=== PATIENT | male | born 1995 | race Caucasian/White ===

== ENCOUNTER 2017-06-21 21:18 | Emergency (ER) | payer BC ==
[~2017-06-21] VITALS: Ht 182.9 cm; Wt 115.4 kg
[2017-06-21 21:21] VITALS: BP 181/99; PULSE 118; TEMP 37; O2SAT 98; Ht 182.9 cm; Wt 115.4 kg
[2017-06-21] MEDS ORDERED: XYLOCAINE 1%/SOD BICARB 20 ML VIAL INFIL STA (21:30)
--- NOTE | 2017-06-21 21:58 | EMERGENCY ROOM VISIT NOTE ---
ED Visit Note First contact with patient: 21:25 CHIEF COMPLAINT: Left middle Finger laceration HISTORY OF PRESENT ILLNESS: This 22-year-old male patient presents to the emergency department approximately 30 minutes after cutting the left middle finger with a knife. The patient states he was trying to cut a hole in a plastic shoebox using a K-bar knife, when the knife slipped, cutting his left middle finger, next to the nail. The laceration is on the lateral aspect of the distal left middle finger, and does not extend into the nailbed. The bleeding has stopped. Denies weakness or numbness of the finger. The patient has full range of motion of the fingers. The patient rates the pain as throbbing and 5/10. The patient denies any other injuries. The patient's tetanus shot is up to date. REVIEW OF SYSTEMS: A 6 system review of systems was completed with positives and pertinent negatives listed in the HPI. ALLERGIES: None MEDICATIONS: None PMH: None SOCIAL HISTORY: Patient is a [place] [employer] student. He lives locally with his roommate. The patient states he does occasionally drink alcohol, but denies any drug or tobacco use. PHYSICAL EXAM: Vital Signs: Reviewed Nurse's notes, vital signs stable. GENERAL : This is a 22-year-old male, in no acute distress, well developed, well nourished. SKIN: There is a 0.5 cm long laceration on the distal, lateral aspect of the left third finger which does not extend into the nail bed or fingernail. The edges gape apart with traction. There is no foreign material in the wound and it looks clean. There is minimal bleeding. No deep structures such as tendons, bones, or significant blood vessels are seen in the base of the wound. Extension and flexion of the finger is full and strong. Full range of motion of the wrist and other fingers. Capillary refill less than 2 seconds. Normal sensation to light and sharp touch. EMERGENCY DEPARTMENT COURSE: I examined the patient. Verbal consent was obtained to perform the procedure. Using sterile technique the wound was cleansed with Betadine. 3 ml of 1% buffered lidocaine was used to perform a digital block to anesthetize the patient. The area was sterilely draped. Once the patient was anesthetized, the wound was copiously irrigated under pressure with sterile saline. The wound was explored and there were no deep structures injured. The laceration was repaired using 4 simple interrupted 5-0 nylon sutures. The patient tolerated the procedure well. Hemostasis was achieved. The area was cleaned with sterile saline and dressed with bacitracin ointment and bandage. The patient was discharged home in good condition. DIFFERENTIAL DIAGNOSIS: Laceration, avulsion, puncture, contusion, and others DIAGNOSIS: Finger laceration DISCHARGE INSTRUCTIONS & TREATMENT: You have received 4 sutures on your left middle finger. These sutures are NOT dissolvable and WILL need to be removed by a health care provider in 10-12 days. You can return to the Emergency Department or contact your Primary Care Provider to have the sutures removed. Proper wound care is essential for adequate wound healing and infection prevention. You can shower and clean the wound with soap and water. Do not scour over the wound, pat dry with a towel. Do not submerse the wound (i.e. bathe or dish wash) until the sutures have been removed. You can use an antibiotic ointment with a dressing over the wound for the next 3-4 days. After this time you may leave the wound dry and open to the air. If crust develops over the wound you can use a Q-tip to apply a 1:1 peroxide:water solution to clean the wound. Look for signs of infection of the wound including: increased pain, swelling, foul discharge, streaking, or increased temperature. If any of these are noticed you should return to the Emergency Department for further assessment and treatment. As with any laceration you may have received nerve damage to the surrounding tissues. This damage may or may not be permanent. You should keep the area covered with sunscreen for the first 6 months to 1 year when at risk for exposure to help minimize scarring. You can also use scar reducing creams or Vitamin E oil to help minimize scarring. For pain control, you can use the following [id number] medicines (if >12 yo): - Regular strength (325mg/tab) Tylenol (acetaminophen) 2 tabs every 4-6 hours as needed. Do not exceed 9 tablets in a 24 hour period. Avoid taking more than 3 grams (3000 mg) of Tylenol per day. This includes any other sources of acetaminophen you may take on a regular basis. - Regular strength (200 mg/tab) Advil (ibuprofen) 1-2 tabs every 4-6 hours as needed. Do not exceed a dose of 2400 mg per day. Return to the emergency department if your symptoms worsen despite treatment course outlined above. Current/Historical Medications No Active Prescriptions or Reported Meds Allergies Coded Allergies: No Known Allergies (Unverified , 06/21/17) Vital Signs Date Time Temp Pulse Resp B/P (MAP) Pulse Ox O2 Delivery O2 Flow Rate FiO2 06/21/17 21:21 37.0 118 20 181/99 98 Room Air Departure Information Impression Primary Impression: Finger laceration Dispostion Home / Self-Care Condition GOOD Prescriptions No Active Prescriptions or Reported Meds Referrals No Doctor, Assigned (PCP) [facility] Patient Instructions ED Laceration Ext Sutr Stap Tape, Massive Additional Instructions You have received 4 sutures on your left middle finger. These sutures are NOT dissolvable and WILL need to be removed by a health care provider in 10-12 days. You can return to the Emergency Department or contact your Primary Care Provider to have the sutures removed. Proper wound care is essential for adequate wound healing and infection prevention. You can shower and clean the wound with soap and water. Do not scour over the wound, pat dry with a towel. Do not submerse the wound (i.e. bathe or dish wash) until the sutures have been removed. You can use an antibiotic ointment with a dressing over the wound for the next 3-4 days. After this time you may leave the wound dry and open to the air. If crust develops over the wound you can use a Q-tip to apply a 1:1 peroxide:water solution to clean the wound. Look for signs of infection of the wound including: increased pain, swelling, foul discharge, streaking, or increased temperature. If any of these are noticed you should return to the Emergency Department for further assessment and treatment. As with any laceration you may have received nerve damage to the surrounding tissues. This damage may or may not be permanent. You should keep the area covered with sunscreen for the first 6 months to 1 year when at risk for exposure to help minimize scarring. You can also use scar reducing creams or Vitamin E oil to help minimize scarring. For pain control, you can use the following dvxg-krx-whwrsaj medicines (if >12 yo): - Regular strength (325mg/tab) Tylenol (acetaminophen) 2 tabs every 4-6 hours as needed. Do not exceed 9 tablets in a 24 hour period. Avoid taking more than 3 grams (3000 mg) of Tylenol per day. This includes any other sources of acetaminophen you may take on a regular basis. - Regular strength (200 mg/tab) Advil (ibuprofen) 1-2 tabs every 4-6 hours as needed. Do not exceed a dose of 2400 mg per day. Return to the emergency department if your symptoms worsen despite treatment course outlined above. Problem Qualifiers Primary Impression: Finger laceration Encounter type: initial encounter Finger: middle finger Damage to nail status: without damage Foreign body presence: without foreign body Laterality: left Qualified Codes: S61.213A - Laceration without foreign body of left middle finger without damage to nail, initial encounter
== END 2017-06-21 22:20 | disposition home or self-care (01) ==
LOC: C.EDB 21:20 → C.EDD 22:20
DX: S61.231A Puncture wound without foreign body of left index finger without damage to nail, initial encounter (principal); W26.0XXA Contact with knife, initial encounter

== ENCOUNTER 2017-10-15 14:05 | Emergency (ER) | payer BC ==
[~2017-10-15] VITALS: Ht 182.9 cm; Wt 115.3 kg
[2017-10-15 14:07] VITALS: TEMP 36.9; Ht 182.9 cm; Wt 115.3 kg
--- NOTE | 2017-10-15 15:09 | DIAGNOSTIC IMAGING REPORT ---
HEAD WITHOUT CONTRAST (CT) CLINICAL HISTORY: 22 years-old Male with fall, head strike, retrograde amnesia, N/V. Acute head injury status post fall TECHNIQUE: Multiple axial CT images of the head were obtained without contrast. A dose lowering technique was utilized adhering to the principles of ALARA. CT DOSE: 679.75 mGycm COMPARISON: None. FINDINGS: No acute intracranial hemorrhage, midline shift, intracranial mass, hydrocephalus, territorial ischemia or abnormal extra-axial collection. Focal 7 mm area of low-attenuation within the region of the right inferior lentiform nucleus suggests prominent perivascular space. Less discrete area is also seen on the left. The calvarium is intact. The paranasal sinuses, mastoid air cells, and middle ear cavities are clear. IMPRESSION: No acute intracranial abnormality. The above report was generated using voice recognition software. It may contain grammatical, syntax or spelling errors. Electronically signed by: Randolph Connors M.D. 10/15/2017 3:07 PM Dictated Date/Time: 10/15/2017 3:05 PM
[2017-10-15 15:34] VITALS: BP 121/60; PULSE 68; O2SAT 98
--- NOTE | 2017-10-16 15:54 | EMERGENCY ROOM VISIT NOTE ---
ED Visit Note First contact with patient: 14:11 Chief Complaint: Head injury. History of Present Illness: Mr. Krishnamurthy is a 22-year-old white male who ambulates into the ED complaining of a possible head injury. Patient was seen at local urgent care center prior to arrival at the hospital and was evaluated and referred to the ED for possible CT scan. Patient reports on Saturday night, 3 days ago, he was drinking alcohol with friends. He reports he went outside to throw something in a garbage container, slipped on the ice and struck his head. He reports he is amnestic to everything after the fall until Saturday afternoon. Currently he is complaining of an occipital/left parietal headache. He describes this as a throbbing discomfort. He rates his discomfort 7/10. His pain is nonradiating. He has not identified any aggravating or alleviating factors related to the pain. He reports he has used Tylenol without relief of his discomfort. Associated with his symptoms he reports he is having dizziness specifically with head movement, mild blurry vision, light sensitivity, sensations of feeling fatigued. Additionally he reports intermittently has been nauseated but has not vomited. He denies hearing changes, difficulty speaking, difficulty swallowing, neck pain , back pain, chest pain, shortness of breath, abdominal pain, extremity weakness /numbness/tingling. Review of Systems: As noted above in history of present illness. All body systems were reviewed and found to be negative as noted above. Past Medical History: Asthma, bronchitis, pneumonia, status post tonsillectomy and adenoidectomy. Current Medications: Patient denies. Allergies to Medications: Patient denies. Social History: Patient is currently University student; he feels safe in his home environment; he denies tobacco use. Physical Examination: Vital Signs: Date Time Temp Pulse Resp B/P (MAP) Pulse Ox O2 Delivery O2 Flow Rate FiO2 10/15/17 15:34 68 18 121/60 98 10/15/17 14:10 17 10/15/17 14:07 36.9 77 17 141/82 98 Room Air GENERAL: 22-year-old male in mild distress due to symptoms, nontoxic-appearing, afebrile and hemodynamically stable. NEUROLOGICAL: Awake, alert and oriented to person, place and time. Answering questions appropriately and following commands. Normal gait. Good hand eye coordination. Romberg test negative. Pronator drift test negative. Cranial nerves II through XII grossly intact. Good short-term but poor long-term recall. Able to spell and count backwards. SKIN: Warm, dry and pink. No soft tissue eruptions or trauma noted. HEENT: Atraumatic and normocephalic. Skull: No bony deformity, bony tenderness , swelling or ecchymosis. No raccoon's eyes or conn signs. No drainage in the ears of the nostril; no hemotympanum. Face: No bony tenderness, swelling or ecchymosis. PERRLA. EOMI without nystagmus. Visual acuity: 20/30 bilaterally without correction. No malocclusion. No intraoral trauma. Airway is patent. Speech is normal and clear. No lymphadenopathy. Trachea midline. No jugular venous distention. BACK: No tenderness over the bony cervical, thoracic and lumbar spine. No tenderness throughout the paraspinous muscles or spasm. Full range of motion of the cervical spine. No CVA tenderness. THORAX: Lungs sounds are clear to auscultation and equal bilaterally with symmetrical chest wall. No wheezing, rales or rhonchi. No crepitus, tenderness , subcutaneous air or deformities noted. ABDOMEN: Flat, soft and nontender. Positive bowel sounds in all quadrants. No guarding, rigidity or organomegaly. EXTREMITIES: Moves all extremities well on command and with purpose. All distal neurovascular statuses are intact and equal bilaterally. 4/5 muscle strength in all movements of the upper and lower extremities against resistance. ED Course: Patient is assessed as noted above. Patient's medication list was reviewed. Patient was offered pain medications and refused. Head CT: Was reviewed by myself and read by the radiologist showing no acute or cranial abnormalities or skull fractures. Patient was educated about today's findings and instructed on his treatment plan ; he verbalizes understanding and agreement with this plan. Clinical Impression: Concussion. Decision-Making: Initially my differential diagnosis I considered concussion, intracranial bleed, skull fracture and other concerning was his for her symptoms. Disposition: Patient discharged home in stable condition; prior to departure he was reassessed and subjectively reported that he was pain and symptom-free. Plan: Patient was encouraged use acetaminophen as needed for pain every 6 hours and stay well hydrated. Patient was encouraged to rest for the next 48 hours. Patient was encouraged to avoid alcohol for the next 48 hours. Patient was encouraged to follow-up with the local concussion clinic. Patient was encouraged to return to the ED sooner for any signs of worsening head injury or any new/concerning symptoms
== END 2017-10-15 15:35 | disposition home or self-care (01) ==
LOC: C.EDB 14:07 → C.EDD 15:35
DX: S06.0X0A Concussion without loss of consciousness, initial encounter (principal); W00.9XXA Unspecified fall due to ice and snow, initial encounter; J45.909 Unspecified asthma, uncomplicated